=== PATIENT | female | born 1980 | race Caucasian/White ===

== ENCOUNTER 2017-01-04 19:02 | Emergency (ER) | payer OTHER ==
[~2017-01-04 19:02] MED LIST: ALBUTEROL17 GM INH; AMOXICILLIN875 MG PO; BACTRIM DS TABL1 TA1 PO; BENTYL20 MG PO; DEPO-PROVER150 MG/ML INJ; DOXYCYCLINE HY100 M3 PO; FLEXERIL10 MG PO; GUAIFENESIN W/CO5 ML PO; MECLIZINE PO; MEDROL4 MG/DOSE- PO; NAPROSYN500 MG PO; NO MEDICATIONS; PEN-VEE K PO; PHENERGAN PO; PHENERGAN SUPP25 M1 PR; PHENERGAN25 M1 PO; PHENERGAN25 MG PO; PROMETHAZINE D118 ML PO; PROMETHAZINE-D240 ML PO; PROTONIX PO; PYRIDIUM PO; REQUIP0.25 MG PO; SILVADENE TOP; TRAZODONE PO; TYLENOL #3 PO; ZITHROMAX PO; ZYRTEC-D TABLE1 EACH PO
[2017-01-18] MEDS ORDERED: TRAZODONE (00:28)
[2017-01-18] MEDS ORDERED: REQUIP (00:28)
== END 2017-01-04 19:10 | disposition home or self-care (01) ==
LOC: SED 19:02
DX: G56.02 Carpal tunnel syndrome, left upper limb (principal); F17.210 Nicotine dependence, cigarettes, uncomplicated; Z88.8 Allergy status to other drugs, medicaments and biological substances
CPT/HCPCS: 29125; 99283

== ENCOUNTER 2017-01-18 01:14 | Emergency (ER) | payer OTHER ==
[~2017-01-18 01:14] MED LIST changes: +REQUIP; +TRAZODONE
== END 2017-01-18 01:45 | disposition home or self-care (01) ==
LOC: SED 01:14
DX: M25.532 Pain in left wrist (principal); M25.531 Pain in right wrist; F17.210 Nicotine dependence, cigarettes, uncomplicated; Z90.89 Acquired absence of other organs; Z87.891 Personal history of nicotine dependence
CPT/HCPCS: 29125; 99283

== ENCOUNTER 2017-03-24 20:45 | Emergency (ER) | payer OTHER ==
[2017-03-24 21:36] LABS: URINE SOURCE CLEAN CATCH
[2017-03-24 21:39] LABS: URINE APPEARANCE CLEAR; URINE BILIRUBIN NEG (NEG); URINE BLOOD TRACE-INTACT (NEG); URINE COLOR YELLOW; URINE GLUCOSE NEG (NORM); URINE KETONE NEG (NEG); URINE LEUKOCYTE ESTERASE NEG (NEG); URINE NITRATE NEG (NEG); URINE PROTEIN NEG (NEG); URINE SPECIFIC GRAVITY 1.025 (1.003-1.035)
[2017-03-24 21:40] LABS: MICRO INDICATED? YES
[2017-03-24 21:41] LABS: BASOPHIL% 0.5 % (0-2.5); DIFF IND NO; EOSINOPHIL% 0.3 % (0.0-7.0); HEMATOCRIT 37.4 % (35.0-45.0); HEMOGLOBIN 12.6 gm/dL (12.0-16.0); LYMPHOCYTE# 1.7 X10e3 (1.0-3.5); LYMPHOCYTE% 18.5 % (17.0-45.0); MEAN CORPUSCULAR HGB CONC 33.7 g/dL (30-36); MEAN PLATELET VOLUME 11.2 FL (6.5-11.5); MONOCYTE# 0.4 X10e3 (0-1.0); MONOCYTE% 4.4 % (3.0-12.0); NEUTROPHIL% 76.3 % (40-75); PLATELET COUNT 155 X10e3 (140-420); RED BLOOD COUNT 4.06 X10e (3.90-5.30); RED CELL DISTRIBUTION WIDTH 13.8 % (11.0-15.5); WHITE BLOOD COUNT 9.1 X10e3 (4.0-10.5)
[2017-03-24 21:42] LABS: CULTURE INDICATED? NO; URINE BACTERIA NEG (NEG); URINE MUCUS PRESENT; URINE SQUAMOUS EPITHELIAL CELL OCCAS /[HPF]; URINE WBC 0-2 /[HPF] (0-5)
[2017-03-24 21:56] LABS: ALBUMIN SERUM 3.8 g/dL (3.5-5.0); BILIRUBIN, DIRECT 0.1 mg/dL (0.0-0.2); BILIRUBIN,INDIRECT 0.2 mg/dL (0.0-0.9); BILIRUBIN,TOTAL 0.3 mg/dL (0.2-2.0); BUN/CREATININE RATIO 18.33; CALCIUM SERUM 8.6 mg/dL (8.4-10.2); CREATININE SERUM 0.6 mg/dL (0.6-1.4); GLOM FILT RATE Estimated 116.4 mL/min (>60); POTASSIUM 3.5 mmol/L (3.5-5.1); PROTEIN TOTAL SERUM 6.2 g/dL (6.0-8.3)
[2017-03-24] MEDS ORDERED: PEPCID40 MG/5 M1 PO (22:32)
[2017-03-24] MEDS ORDERED: VOLTAREN25 MG PO (22:32)
== END 2017-03-24 22:37 | disposition home or self-care (01) ==
LOC: SED 20:45
PROVIDERS: Physician Assistant
DX: R10.32 Left lower quadrant pain (principal); Z87.42 Personal history of other diseases of the female genital tract; F17.210 Nicotine dependence, cigarettes, uncomplicated; Z90.89 Acquired absence of other organs; Z85.41 Personal history of malignant neoplasm of cervix uteri; Z79.899 Other long term (current) drug therapy; Z88.6 Allergy status to analgesic agent; Z88.5 Allergy status to narcotic agent
CPT/HCPCS: 36415; 80048; 80076; 81003; 84703; 85025; 99284

== ENCOUNTER 2017-04-19 21:01 | Emergency (ER) | payer OTHER ==
--- NOTE | ~2017-04-19 | CT4 ---
[facility]. [facility] A Service of [facility] RADIOLOGY TEXT RESULTS PATIENT: GIULIANA ROY LOCATION: SED : 78 UNIT #: [id number] AGE: [address]: Sachin Irizarry MD SEX: F ORDER DR: [id number] [place] [address] [id number] E MR#: [id number] Acc #: [id number] NAME: GIULIANA ROY. : 1980 SEX: F STUDY DATE/TIME: 04/19/2017 23:41 UNIT: SED ROOM: STUDY DESCRIPTION: CT Abd and Pelv Wo Cont Attending Physician: Sachin Irizarry M.D. Ordering Physician: Sachin Irizarry M.D. Primary Care Physician: Navin Saldana M.D. MEDICAL IMAGING REPORT This report is preliminary unless electronic signature is present. EXAM Abdomen and pelvis CT 04/19/17, 23:41. INDICATIONS Bilateral flank pain and hematuria for 2 days. History of cervical cancer. TECHNIQUE Axial noncontrast images were obtained through the abdomen and pelvis. Multiplanar reformats were obtained. COMPARISON Comparison is made with 08/18/2014. This CT exam was performed with one or more of the following radiation dose reduction techniques: automatic exposure control, adjustment of mA and/or kV according to patient size, and iterative reconstruction. FINDINGS Abdomen: There is some atelectasis or scarring in the right middle lobe and lingula. Gallbladder normal. No renal or ureteral stones are seen. There is no hydronephrosis. The unenhanced solid organs are normal. The unopacified GI tract grossly normal. Pelvis: The appendix is normal. Remainder of the unopacified GI tract is grossly normal as well. No lower ureteral stones are seen. The bladder is normal. There is a 2.6 cm left ovarian cyst. Uterus is retroflexed. IMPRESSION 1. No renal or ureteral stones. No hydronephrosis. 2. Normal unopacified GI tract, including the appendix. 3. 2.6 cm left ovarian cyst. [facility] A Service of [facility] RADIOLOGY TEXT RESULTS PATIENT: GIULIANA ROY LOCATION: [facility] : [birth year] UNIT #: [id number] AGE: [address]: Sachin Irizarry MD SEX: F ORDER DR: Dictated by... Curtis Jara Jr., M.D. THIS IS AN ELECTRONICALLY VERIFIED REPORT Curtis Jara Jr., M.D. at 04/20/2017 9:14 PM EARL/nohemi TD: 04/20/2017 10:17 JOB #: [id number] MEDICAL IMAGING REPORT Page 1 of 1
[~2017-04-19 21:01] MED LIST changes: +PEPCID40 MG/5 M1 PO; +VOLTAREN25 MG PO
[2017-04-19 23:07] LABS: URINE SOURCE CLEAN CATCH
[2017-04-19 23:10] LABS: URINE APPEARANCE CLEAR; URINE BILIRUBIN NEG (NEG); URINE BLOOD TRACE-INTACT (NEG); URINE COLOR YELLOW; URINE GLUCOSE NEG (NORM); URINE KETONE NEG (NEG); URINE LEUKOCYTE ESTERASE NEG (NEG); URINE NITRATE NEG (NEG); URINE PH 6.5 (5-8); URINE PROTEIN NEG (NEG); URINE SPECIFIC GRAVITY 1.025 (1.003-1.035)
[2017-04-19 23:11] LABS: MICRO INDICATED? YES
[2017-04-19 23:16] LABS: CULTURE INDICATED? NO; URINE BACTERIA NEG (NEG); URINE SQUAMOUS EPITHELIAL CELL OCCAS /[HPF]; URINE WBC 0-2 /[HPF] (0-5)
[2017-04-19 23:17] LABS: URINE MUCUS PRESENT
[2017-04-19 23:20] LABS: AMPHETAMINE NEG (NEG); BARBITURATES NEG (NEG); BENZODIAZEPINES NEG (NEG); COCAINE NEG (NEG); MARIJUANA NEG (NEG); OPIATES NEG (NEG); TRICYCLIC ANTIDEPRESSANTS NEG (NEG); U METHADONE NEG (NEG)
[2017-04-19 23:22] LABS: BASOPHIL# 0.1 X10e3 (0-0.3); EOSINOPHIL# 0.1 X10e3 (0-0.7); HEMATOCRIT 35.5 % (35.0-45.0); HEMOGLOBIN 11.9 gm/dL (12.0-16.0); LYMPHOCYTE# 2.5 X10e3 (1.0-3.5); LYMPHOCYTE% 37.5 % (17.0-45.0); MEAN CELL VOLUME 92.2 FL (83-96); MEAN CORPUSCULAR HEMOGLOBIN 30.9 PG (28-34); MEAN CORPUSCULAR HGB CONC 33.5 g/dL (30-36); MEAN PLATELET VOLUME 10.6 FL (6.5-11.5); MONOCYTE# 0.4 X10e3 (0-1.0); MONOCYTE% 6.4 % (3.0-12.0); NEUTROPHIL# 3.5 X10e3 (1.5-7.1); NEUTROPHIL% 53.1 % (40-75); PLATELET COUNT 158 X10e3 (140-420); RED BLOOD COUNT 3.85 X10e (3.90-5.30); WHITE BLOOD COUNT 6.6 X10e3 (4.0-10.5)
[2017-04-19 23:23] LABS: DIFF IND NO
[2017-04-19 23:40] LABS: BUN/CREATININE RATIO 15.71; CREATININE SERUM 0.7 mg/dL (0.6-1.4); GLOM FILT RATE Estimated 110.7 mL/min (>60); POTASSIUM 3.6 mmol/L (3.5-5.1)
== END 2017-04-20 00:55 | disposition home or self-care (01) ==
LOC: SED 21:01
PROVIDERS: Emergency Medicine
DX: R10.9 Unspecified abdominal pain (principal); F41.9 Anxiety disorder, unspecified; F17.210 Nicotine dependence, cigarettes, uncomplicated; Z79.899 Other long term (current) drug therapy; Z88.8 Allergy status to other drugs, medicaments and biological substances; Z85.41 Personal history of malignant neoplasm of cervix uteri
CPT/HCPCS: 36415; 74176; 80048; 80307; 81003; 84703; 85025; 96361; 96374; 96375; 99284; J1885; J2405

== ENCOUNTER 2017-04-25 22:54 | Emergency (ER) | payer OTHER ==
[2017-04-26 00:11] LABS: URINE APPEARANCE CLEAR; URINE BILIRUBIN NEG (NEG); URINE BLOOD 2+ (NEG); URINE COLOR YELLOW; URINE GLUCOSE NEG (NORM); URINE KETONE NEG (NEG); URINE LEUKOCYTE ESTERASE NEG (NEG); URINE NITRATE NEG (NEG); URINE PH 5.5 (5-8); URINE PROTEIN NEG (NEG); URINE SOURCE CLEAN CATCH; URINE SPECIFIC GRAVITY <=1.005 (1.003-1.035); URINE UROBILINOGEN 0.2 MG/DL (NORM)
[2017-04-26 00:12] LABS: MICRO INDICATED? YES
[2017-04-26 00:21] LABS: AMPHETAMINE POS (NEG); BARBITURATES NEG (NEG); BENZODIAZEPINES NEG (NEG); COCAINE NEG (NEG); CULTURE INDICATED? NO; MARIJUANA NEG (NEG); OPIATES NEG (NEG); TRICYCLIC ANTIDEPRESSANTS NEG (NEG); U METHADONE NEG (NEG); URINE BACTERIA NEG (NEG); URINE RBC 25-50 /[HPF] (0-2)
== END 2017-04-26 02:20 | disposition home or self-care (01) ==
LOC: SED 22:54
PROVIDERS: Physician Assistant
DX: R51 Headache (principal); R03.0 Elevated blood-pressure reading, without diagnosis of hypertension; F15.10 Other stimulant abuse, uncomplicated; F17.210 Nicotine dependence, cigarettes, uncomplicated; Z79.899 Other long term (current) drug therapy; Z88.8 Allergy status to other drugs, medicaments and biological substances
CPT/HCPCS: 80307; 81003; 96361; 96374; 96375; 99284; J1200; J1885; J2765

== ENCOUNTER 2017-04-28 23:04 | Emergency (ER) | payer OTHER ==
--- NOTE | ~2017-04-28 | CR127 ---
[facility] A Service of [facility] RADIOLOGY TEXT RESULTS PATIENT: GIULIANA ROY LOCATION: [facility] : 78 UNIT #: [id number] AGE: [address]: DERECK SMITH APRN SEX: F ORDER DR: [id number] [facility] [address] [place], [place] [address] [id number] E MR#: [id number] Acc #: [id number] NAME: GIULIANA ROY : 1980 SEX: F STUDY DATE/TIME: 04/29/2017 2:57 UNIT: [facility] ROOM: STUDY DESCRIPTION: CR Foot Complete Min 3 View Rt Attending Physician: Dereck Smith Aprn Ordering Physician: Ed Doctor [id number] [facility] Primary Care Physician: Navin Saldana M.D. MEDICAL IMAGING REPORT This report is preliminary unless electronic signature is present EXAM Right foot series INDICATION Right foot pain after an injury today. PROCEDURE 3 views of the right foot. COMPARISON None FINDINGS No acute fracture or dislocation. IMPRESSION No acute findings. Dictated by... Homer Boyle M.D. THIS IS AN ELECTRONICALLY VERIFIED REPORT Homer Boyle M.D. at 04/29/2017 10:29 PM Sandra TD: 04/29/2017 08:45 JOB #: [id number] MEDICAL IMAGING REPORT Page 1 of 1 COPY
--- NOTE | ~2017-04-28 | CR262 ---
[facility] A Service of [facility] RADIOLOGY TEXT RESULTS PATIENT: GIULIANA ROY LOCATION: [facility] : 78 UNIT #: [id number] AGE: [address]: DERECK SMITH APRN SEX: F ORDER DR: [id number] [facility] [address] [facility]. [place], [place] [address] [id number] E MR#: [id number] Acc #: [id number] NAME: GIULIANA ROY : 1980 SEX: F STUDY DATE/TIME: 04/29/2017 4:29 UNIT: [facility] ROOM: STUDY DESCRIPTION: CR Toe 2 Views Great Lt Attending Physician: Dereck Smith Aprn Ordering Physician: Dereck Smith Aprn Primary Care Physician: Navin Saldana M.D. MEDICAL IMAGING REPORT This report is preliminary unless electronic signature is present EXAM Left first digit series INDICATION Left first toe pain after injury tonight. PROCEDURE 3 views of the left first digit. COMPARISON None FINDINGS No fracture or dislocation. IMPRESSION No acute findings. Dictated by... Homer Boyle M.D. THIS IS AN ELECTRONICALLY VERIFIED REPORT Homer Boyle M.D. at 04/29/2017 10:27 PM Sandra TD: 04/29/2017 08:57 JOB #: [id number] MEDICAL IMAGING REPORT Page 1 of 1 COPY
== END 2017-04-29 05:40 | disposition home or self-care (01) ==
LOC: CED 23:04
DX: S90.212A Contusion of left great toe with damage to nail, initial encounter (principal); K21.9 Gastro-esophageal reflux disease without esophagitis; F41.9 Anxiety disorder, unspecified; F17.210 Nicotine dependence, cigarettes, uncomplicated; Z98.890 Other specified postprocedural states; Z88.8 Allergy status to other drugs, medicaments and biological substances; W20.8XXA Other cause of strike by thrown, projected or falling object, initial encounter; Y92.009 Unspecified place in unspecified non-institutional (private) residence as the place of occurrence of the external cause
CPT/HCPCS: 73630; 73660; 99283

== ENCOUNTER 2017-07-11 15:53 | Emergency (ER) | payer OTHER ==
--- NOTE | ~2017-07-11 | CR281 ---
[facility] A Service of [facility] RADIOLOGY TEXT RESULTS PATIENT: GIULIANA ROY LOCATION: [facility] : 78 UNIT #: [id number] AGE: [address]: Polina Ceja APRN SEX: F ORDER DR: [id number] [facility] [address] [facility]. [place], [place] [address] [id number] E MR#: [id number] Acc #: [id number] NAME: GIULIANA ROY : 1980 SEX: F STUDY DATE/TIME: 07/11/2017 17:23 UNIT: [facility] ROOM: STUDY DESCRIPTION: CR Wrist Min 3 View Lt Attending Physician: Polina Ceja A.P.R.N. Ordering Physician: Ed Garth Quinn M.D. Primary Care Physician: Navin Saldana M.D. MEDICAL IMAGING REPORT This report is preliminary unless electronic signature is present EXAM 3-views left wrist DATE 07/11/2017 HISTORY Left wrist pain since this morning. No known injury. COMPARISON None FINDINGS No fracture or joint dislocation or significant osteoarthritic change. IMPRESSION Normal left wrist. Dictated by... Micaela Nolen M.D. THIS IS AN ELECTRONICALLY VERIFIED REPORT Micaela Nolen M.D. at 07/13/2017 6:16 AM JOSE/severiano TD: 07/13/2017 00:20 JOB #: [id number] MEDICAL IMAGING REPORT Page 1 of 1 COPY
== END 2017-07-11 18:10 | disposition home or self-care (01) ==
LOC: CFTX 15:53 → CED 15:53 → CFTX 17:04
DX: M25.532 Pain in left wrist (principal); F17.210 Nicotine dependence, cigarettes, uncomplicated; Z79.899 Other long term (current) drug therapy; Z88.8 Allergy status to other drugs, medicaments and biological substances
CPT/HCPCS: 73110; 99283